=== PATIENT | female | born 1995 | race Caucasian/White ===

== ENCOUNTER 2017-03-10 20:48 | Emergency (ER) | payer OTHER ==
[2017-03-10 21:25] VITALS: RESP 18; TEMP 97.1
[2017-03-10] MEDS ORDERED: Amoxicill/Clav 875/125mg Tab 1 TAB TAB PO ONE (22:00)
[2017-03-10] MEDS ORDERED: HYDROcodone-APAP 5 MG -325 MG TABLET PO ONE (22:00)
--- NOTE | 2017-03-10 22:05 | PDOC ---
Sore Throat/Dental Pain HPI - General Chief Complaint: Nasal/Mouth Problem /Injury Stated Complaint: [place] dry socket, dental pain/ jaw pain Date Seen by Provider: 03/10/17 Time Seen by Provider: 22:00 Source: POSITIVE: Patient, Other (Mother) Exam Limitations: POSITIVE: No limitations Nurse's Notes Reviewed & Considered: Yes - History of Present Illness Initial Comments: This very pleasant 22-year-old female comes in today with complaints of jaw pain. On Sunday, 5 days ago, patient had all 4 wisdom teeth removed now complaining of pain on her right upper and lower jaw. She has finished her amoxicillin yesterday. She has 4 Vicodin pain pills left and her pain continues unabated alternating every 3 hours 800 mg of ibuprofen and 1 Vicodin. She denies other symptoms. Location: Dental (Lower) Timing: REPORTS: Constant Duration: <1 week Severity: Moderate Quality: REPORTS: "Pain", Throbbing Context: REPORTS: Other ([place] tooth extraction) Associated Symptoms: REPORTS: Toothache, Earache Similar Symptoms Previously: Yes Recently seen/treated/hospitalized: No Any Prior Injuries Related to Current Complaint?: No - Patient Home Medications Home Medications: Home Medications Etonogestrel/Ethinyl Estradiol [Nuvaring Vaginal Ring] 1 vag ring VG MONTHLY #3 vag ring 04/07/16 Amoxicillin 875 mg PO TID 03/10/17 Hydrocodone/Acetaminophen [Vicodin 5-300 mg Tablet] 1 tab PO Q6H PRN 03/10/17 Ibuprofen 800 mg PO Q6H PRN 03/10/17 - Patient Allergies Allergies/Adverse Reactions: Allergies Allergy/AdvReac Type Severity Reaction Status Date / Time No Known Drug Allergies Allergy NOT Verified 03/10/17 21:02 APPLICABLE Past Medical History - heen HEENT History: Other (please comment) Additional HEENT History: tonsilectomy Cardiovascular History: Denies History Respiratory History: Denies History Gastrointestinal History: Denies History Genitourinary History: Denies History Endocrine History: Denies History Musculoskeletal History: Denies History Prosthesis or Implant: No Neurological History: Denies History Blood Disorders: Denies History Psychiatric History: Denies History History of Sexually Transmitted Diseases: No Cancer History: Denies History In Past Year Been Physically Harmed or Verbally Threatened: No History of MDRO: No History of Other Communicable Diseases: No Tobacco Use: Never Smoker Alcohol Use: None Substance Use Type: None Previous Surgical History: Yes Type / Date of Surgery: tonsilectomy Anesthesia Reactions: No Significant Family History: No pertinent family hx ROS Constitution: REPORTS: Denies Symptoms Cardiovascular: REPORTS: Denies Cardiac Symptoms Respiratory: REPORTS: Denies Resp Symptoms Neurological: REPORTS: Denies Neuro Symptoms Gastrointestinal: REPORTS: Denies GI Symptoms Endocrine: REPORTS: Denies Symptoms Musculoskeletal: REPORTS: Denies MS Symptoms Genitourinary: REPORTS: Denies Symptoms Eyes: REPORTS: Denies Symptoms ENT: REPORTS: Dental Pain Skin: REPORTS: Denies Skin Symptoms Lympathic: REPORTS: Denies Lympathic Symptoms Immunologic: POSITIVE: Denies Symptoms Psychiatric: POSITIVE: Denies Psych Symptoms Sore Throat/Dental Pain Exam - General Appearance General Appearance: REPORTS: Alert, Cooperative, No Evidence of Trauma, Moderate Distress - HEENT Head / Face: POSITIVE: Atraumatic, Normal Inspection, No Facial Swelling Eyes: POSITIVE: Inspection Normal, PERRL, EOM's Intact, Eyelids Uninjured, Conjunctivae Uninjured, No Nystagmus, No Globe Trauma, Sclera Normal, Normal Corneal Inspection Ears: POSITIVE: Ears Normal Inspection, Auricle Normal Nose: POSITIVE: Inspection Normal, No Apparent Trauma, Nares Normal, No CSF Leak Oropharynx: POSITIVE: External Inspection Nml, Pharynx Inspect. Nml, Airway Intact, Voice Normal, Moist Mucous Membranes, No Oral Injury, Lips Normal, Gums Normal, No Drooling, No Thrush, Normal Gag Reflex Neck: POSITIVE: Supple, Normal Inspection, Non Tender Dental: POSITIVE: Dental Tenderness, Other (Tenderness in the right lower socket for her wisdom tooth. I do not believe this is a dry socket since I see clot present.) - Respiratory Respiratory: REPORTS: No Respiratory Distress, Speaks Full Sentences, No Pain on Inspiration Sore Throat/Dental Progress - Patient's Progress Status: POSITIVE: Improved MDM / ED Course: Patient was examined. She receives [place] 2 tablets of 5/325 mg. She also receives Augmentin. Assessment: Dental pain related to wisdom tooth extraction. Plan: Discharge home [place] No. 20 prescribed, Augmentin prescribed. She is to continue the ibuprofen as directed. She is to follow-up with her dental surgeon. - Consult Counseled: POSITIVE: Patient, Family, RE: DX, RE: Need for F/U Patient Care Time - Estimated PCT Patient Care Time (In Minutes): 10 Vital Signs - Recent Vital Signs Vital Signs: Vital Signs (Last 8 hours) Temp Pulse Resp BP Pulse Ox 03/10/17 20:49 97.1 F 78 18 135/106 96 - VS Reviewed Vital Signs Reviewed: Yes Discharge Clinical Impression: Odontalgia, History of third molar tooth extraction Discharge Disposition: Discharged to Home Condition: Stable Patient Instructions Given at Discharge: Toothache (ED)
== END 2017-03-10 22:24 | disposition home or self-care (01) ==
LOC: ER 20:48
DX: K08.89 Other specified disorders of teeth and supporting structures (principal)
CPT/HCPCS: 99282